=== PATIENT | male | born 1990 | race Caucasian/White ===

== ENCOUNTER → 2019-03-14 | Outpatient (CLI) | payer MEDICAID | LOC: FIMAGING 15:45 | PROVIDERS: ATTEND Internal Medicine | DX: J32.9 Chronic sinusitis, unspecified (principal) ==

== ENCOUNTER 2019-03-19 05:50 | Day surgery (SDC) | payer MEDICAID ==
--- NOTE | 2019-03-16 10:57 | GHP ---
[f rep st] PREOP HISTORY AND PHYSICAL DATE OF ADMISSION: 03/19/2019 CHIEF COMPLAINT: Left inguinal hernia. HISTORY OF PRESENT ILLNESS: Akash is a 28-year-old male who presents for surgical evaluation of a left inguinal hernia. He reports pain and swelling in the left groin. He denies nausea, vomiting, diarrhea, constipation. He underwent an ultrasound on 02/06/2019, that showed a fat and bowel-containing left inguinal hernia. PAST MEDICAL HISTORY: None. PAST SURGICAL HISTORY: None. MEDICATIONS: Flonase nasal spray, Mucinex, Zyrtec. ALLERGIES: Erythromycin, Keflex, penicillin, sulfa, Vantin. FAMILY MEDICAL HISTORY: Hypertension, cervical cancer in maternal grandmother. SOCIAL HISTORY: This patient is a nonsmoker. He occasionally drinks alcohol. REVIEW OF SYSTEMS: Ten-point review of systems was performed and is negative, aside from what is in the HPI. PHYSICAL EXAM: GENERAL: Well appearing, well dressed, no acute distress. HEENT: Normocephalic, atraumatic. No gross hearing deficits. Mucous membranes moist. No scleral icterus. PSYCHIATRIC: Appropriate mood and affect. NEUROLOGIC: Alert, oriented x3. CARDIAC: Regular rate and rhythm. No clicks, murmurs, or rubs. RESPIRATORY: Clear to auscultation bilaterally. No increased work of breathing. ABDOMEN: Soft, nontender, nondistended. Bowel sounds are present. Patient has a reducible bulge in the left groin. He also has a weakness in the right groin. SKIN: Warm and dry. No rashes or jaundice. EXTREMITIES: Moves all extremities equally. IMPRESSION AND PLAN: Akash is a healthy 28-year-old male who has a fat and bowel-containing left inguinal hernia. He also has a weakness on the right side. We have discussed our risks and options. Risks of surgery include, but are not limited to, infection, bleeding, recurrence, damage to surrounding structures including the spermatic cord, bladder and bowel, heart attack, and . Patient understands and wishes to proceed. We will proceed with laparoscopic left inguinal hernia repair with mesh, possible bilateral procedure. /[id number]/MODL MTDD
[2019-03-19] MEDS ORDERED: LR 1,000 ML IV ONE (06:04)
[2019-03-19] MEDS ORDERED: ceFAZolin 2 GM/DEXTROSE 100 ML IV ONE (06:04)
[2019-03-19] MEDS ORDERED: BUPIVACAINE 0.5% 30 ML SDV ONE (06:57)
[2019-03-19] MEDS ORDERED: MIDAZOLAM 2 MG/2 ML VIAL IVP ONE (06:58)
--- NOTE | 2019-03-19 06:58 | PDANEPAE ---
ANE History of Present Illness left inguinal hernia an here for laparoscopic repair poss bilateral repair ANE Past Medical History - Cardiovascular History Hx Hypertension: No Hx Arrhythmias: No Hx Chest Pain: No Hx Coronary Artery / Peripheral Vascular Disease: No Hx CHF / Valvular Disease: No Hx Palpitations: No - Pulmonary History Hx COPD: No Hx Asthma/Reactive Airway Disease: No Hx Recent Upper Respiratory Infection: No Hx Oxygen in Use at Home: No Hx Sleep Apnea: No Sleep Apnea Screening Result - Last Documented: Negative Pulmonary History Comment: sinusitis - Neurologic History Hx Cerebrovascular Accident: No Hx Seizures: No Hx Dementia: No - Endocrine History Hx Diabetes: No - Renal History Hx Renal Disorders: No - Liver History Hx Hepatic Disorders: No - Neurological & Psychiatric Hx Hx Neurological and Psychiatric Disorders: No - Cancer History Hx Cancer: No - Congenital Disorder History Hx Congenital Disorders: No - GI History Hx Gastrointestinal Disorders: Yes Gastrointestinal History Comment: heartburn,IBS - Other Health History Other Health History: abx for sinusitis - Chronic Pain History Chronic Pain: No - Surgical History Prior Surgeries: none in last 5 yrs. 14yrs ago cyst removal ANE Review of Systems Review of Systems: - Exercise capacity METS (RN): 6 METS ANE Patient History - Allergies Allergies/Adverse Reactions: cefpodoxime [From Vantin] Allergy (Verified 03/14/19 09:29) Unknown cephalexin [From Keflex] Allergy (Verified 03/14/19 09:29) Other-Enter Comments erythromycin base Allergy (Verified 03/14/19 09:29) Unknown Penicillins Allergy (Verified 03/14/19 09:29) Anaphylaxis Sulfa (Sulfonamide Antibiotics) Allergy (Verified 03/14/19 09:29) Anaphylaxis - Home Medications Home Medications: NK [No Known Home Meds] 03/14/19 [Last Taken Unknown] - NPO status NPO Since - Liquids (Date): 03/18/19 NPO Since - Liquids (Time): 23:00 NPO Since - Solids (Date): 03/18/19 NPO Since - Solids (Time): 16:00 - Smoking Hx Smoking Status: Never smoked - Family Anes Hx Family Hx Anesthesia Complications: none ANE Labs/Vital Signs - Vital Signs Blood Pressure: 126/87 Heart Rate: 75 Respiratory Rate: 16 O2 Sat (%): 96 Height: 177.8 cm Weight: 83.915 kg ANE Physical Exam - Airway Neck exam: FROM Mallampati Score: Class 2 Mouth exam: normal dental/mouth exam - Pulmonary Pulmonary: no respiratory distress, no rales or rhonchi - Cardiovascular Cardiovascular: regular rate and rhythym, no murmur, rub, or gallop - ASA Status ASA Status: II ANE Anesthesia Plan Anesthesia Plan: general endotracheal anesthesia Total IV Anesthesia: No
--- NOTE | 2019-03-19 07:04 | PDHPUP ---
History & Physical Update H&P update statement: This history and physical update is based on an assessment of the patient which was completed after admission or registration (within 24 hours), but prior to the surgery/procedure. H&P update: H&P reviewed & patient examined, no change in patient's condition since H&P completed
[2019-03-19] MEDS ORDERED: DEXAMETHASONE 4 MG/ML VIAL ONE (07:19)
[2019-03-19] MEDS ORDERED: LIDOCAINE 2% 100 MG/5 ML SYR ONE (07:19)
[2019-03-19] MEDS ORDERED: ROCURONIUM 100 MG/10 ML VIAL ONE (07:19)
[2019-03-19] MEDS ORDERED: fentaNYL 250 MCG/5 ML INJ ONE (07:20)
[2019-03-19] MEDS ORDERED: PROPOFOL 200 MG/20 ML VIAL ONE (07:20)
[2019-03-19] MEDS ORDERED: KETOROLAC 30 MG/1 ML SDV ONE (08:08)
[2019-03-19] MEDS ORDERED: ONDANSETRON 4 MG/2 ML VIAL ONE (08:08)
--- NOTE | 2019-03-19 08:29 | POSTOPPROG ---
Post Op Note Date of Operation: 03/19/19 Surgeon: Ilan Ferrer Electrician Apprentice Powerhouse: Brandy Whitlock Anesthesiologist: Ivana Patten Anesthesia: GET(General Endotracheal) Pre-op Diagnosis: left inguinal hernia Post-op Diagnosis: same Procedure: lap LIH repair with mesh and exploration of right side Findings: cord lipoma, small indirect sac Inf/Abcess present in the surg proc area at time of surgery?: No EBL: Minimal Complications: none Bowel Protocol: N/A Clean Closure Performed: N/A
[2019-03-19] MEDS ORDERED: LABETALOL HCL 5 MG/ML 20 ML MDV IVP PRN (08:34)
[2019-03-19] MEDS ORDERED: METOCLOPRAMIDE 10 MG/2 ML VIAL IVP PRN (08:34)
[2019-03-19] MEDS ORDERED: MEPERIDINE 25 MG/0.5 ML AMP IVP PRN (08:34)
[2019-03-19] MEDS ORDERED: PROMETHAZINE HCL 25 MG/ML INJ IVP PRN (08:34)
[2019-03-19] MEDS ORDERED: oxyCODONE IR 5 MG TAB PO PRN (08:34)
[2019-03-19] MEDS ORDERED: ACETAMINOPHEN 500 MG TAB PO PRN (08:34)
[2019-03-19] MEDS ORDERED: fentaNYL 100 MCG/2 ML INJ IVP PRN (08:34)
[2019-03-19] MEDS ORDERED: LR 500 ML IV PRN (08:34)
[2019-03-19] MEDS ORDERED: HYDROmorphONE/DILAUDID 1 MG/ML INJ IVP PRN (08:34)
[2019-03-19] MEDS ORDERED: NALOXONE HCL 0.4 MG/ML INJ IVP PRN (08:34)
--- NOTE | 2019-03-19 08:35 | POSTANESTH ---
Post Anesthetic Evaluation Cardiovascular Status: Normal, Stable Respiratory Status: Normal, Stable Level of Consciousness/Mental Status: Can Participate in Eval, Alert and Oriented Pain Control: Adequate, Prn Tx Ordered Nausea/Vomiting Control: Adequate, Prn Tx Ordered Complications Possibly Related to Anesthesia: None Noted
[2019-03-19] MEDS ORDERED: fentaNYL 100 MCG/2 ML INJ ONE (09:02)
[2019-03-19] MEDS ORDERED: oxyCODONE IR 5 MG TAB ONE (09:03)
[2019-03-19 10:02] VITALS: BP 131/82
== END 2019-03-19 10:25 | disposition home or self-care (01) ==
LOC: FSGY 05:50
PROVIDERS: ATTEND Surgery
PROC: 0YU64JZ Supplement Left Inguinal Region with Synthetic Substitute, Percutaneous Endoscopic Approach (ICD-10-PCS; principal; 2019-03-19 07:15)
DX: K40.90 Unilateral inguinal hernia, without obstruction or gangrene, not specified as recurrent (principal)
CPT/HCPCS: C1727; C1781; J0690; J1100; J1885; J2001; J2250; J2405; J2704; J3010

== ENCOUNTER → 2019-03-30 | Outpatient (CLI) | payer MEDICAID | LOC: FIMAGING 16:38 | PROVIDERS: ATTEND Surgery | DX: N50.812 Left testicular pain (principal) ==